=== PATIENT | female | born 1995 | race Caucasian/White ===

== ENCOUNTER 2023-07-06 10:52 | Emergency (ER) | payer SELFPAY ==
[~2023-07-06] VITALS: Ht 167.6 cm; Wt 79.4 kg
[2023-07-06 10:57] VITALS: O2SAT 99
[2023-07-06] MEDS ORDERED: IBUPROFEN 400 MG TABLET ONE (11:24)
[2023-07-06] MEDS ORDERED: IBUPROFEN 800 MG TABLET PO ONE (11:30)
[2023-07-06] MEDS ORDERED: ACET1TAB23 PO (11:47)
[2023-07-06] MEDS ORDERED: IBUP-1957 PO (11:47)
== END 2023-07-06 12:15 | disposition home or self-care (01) ==
LOC: ER 10:52
DX: S60.012A Contusion of left thumb without damage to nail, initial encounter (principal); Z79.899 Other long term (current) drug therapy; W22.8XXA Striking against or struck by other objects, initial encounter; Y93.89 Activity, other specified; Y92.89 Other specified places as the place of occurrence of the external cause; Y99.8 Other external cause status
CPT/HCPCS: 73120; 73140; A4606; A4663